=== PATIENT | male | born 1970 | race Caucasian/White ===

== ENCOUNTER 2019-10-18 18:37 | Emergency (ER) | payer OTHER, SELFPAY ==
[2019-10-18] VITALS (10 sets, daily range): BP systolic 136; BP diastolic 89; PULSE 65–74; RESP 18–24; TEMP 36.4; O2SAT 94–98
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
--- NOTE | 2019-10-18 19:06 | ED.BACK ---
HPI - Back Pain/Injury General Chief Complaint: Back Pain/Injury Stated Complaint: back pain Time Seen by Provider: 10/18/19 19:05 Source: patient and RN notes reviewed Mode of arrival: ambulatory Limitations: no limitations History of Present Illness HPI Narrative: A 49 y/o male presents to the ED with Related Data Home Medications Medication Instructions Recorded Confirmed Cymbalta 10/18/19 gabapentin 10/18/19 hydrocodone-acetaminophen [Whitt] tablet 10/18/19 Allergies Allergy/AdvReac Type Severity Reaction Status Date / Time No Known Allergies Allergy Verified 10/18/19 18:49 [facility] Past Medical History Medical History (Updated 10/18/19 @ 19:08 by Rico Rosado) Back pain with history of spinal surgery Surgical History Surgical History (Updated 10/18/19 @ 19:08 by Rico Rosado) History of spinal surgery Multiple. Social History Social History (Updated 10/18/19 @ 19:09 by Rico Rosado) Smoking packs per day: 1 Smoking cigarettes per day: 20.0 Smoking status: Current every day smoker Substance use: former Substance use type: marijuana and crack/cocaine Gender identity (if verbalized by the patient): Male Comments PCP: MYNOR Silva. Course Vital Signs Vital signs: Vital Signs Temperature 97.6 F 10/18/19 18:38 Pulse Rate 74 10/18/19 18:38 Respiratory Rate 24 H 10/18/19 18:38 Blood Pressure 136/89 10/18/19 18:38 Pulse Oximetry 98 10/18/19 18:38 Temperature 97.6 F 10/18/19 18:38 Pulse Rate 74 10/18/19 18:38 Respiratory Rate 24 H 10/18/19 18:38 Blood Pressure 136/89 10/18/19 18:38 Pulse Oximetry 98 10/18/19 18:38 Discharge Plan Discharge Prescriptions: No Action hydrocodone-acetaminophen [Whitt] 10-325 mg Tablet RF: 0 Cymbalta RF: 0 gabapentin RF: 0
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
[2019-10-18] MEDS: IBUPROFEN 600 MG TABLET PO (19:47)
[2019-10-18] MEDS: ACETAMINOPHEN 325 MG TABLET 650 MG PO (19:47)
[2019-10-18] MEDS: IPRATROPIUM BR 0.02% INH SOLN 0.5 MG/2.5 ML VIAL INHALATION (20:31)
[2019-10-18] MEDS: ALBUTEROL SULFATE NEB 2.5 MG/0.5 ML INH 5 MG INHALATION (20:31)
[2019-10-18] MEDS: HYDROMORPHONE HCL 1 MG/ML INJ IV PUSH (20:51)
== END 2019-10-18 21:22 | disposition home or self-care (01) ==
PROVIDERS: Emergency Provider Emergency Medicine
DX: M54.5 Low back pain (principal); G89.29 Other chronic pain; J45.901 Unspecified asthma with (acute) exacerbation; F17.210 Nicotine dependence, cigarettes, uncomplicated
CPT/HCPCS: 72100; 94640; 99284; A9270; J1170

== ENCOUNTER 2020-01-10 11:45 | Emergency (ER) | payer OTHER, SELFPAY ==
--- NOTE | ~2020-01-10 | XR_ITS ---
EXAMINATION: XR knee LT 3V DATE: 01/10/2020 12:56 INDICATION: Medial sided left knee pain post fall TECHNIQUE: Anteroposterior, oblique and crosstable lateral views of the left knee were obtained COMPARISON: None. FINDINGS: Alignment is normal. No fracture. Joint spaces are normal on nonweightbearing imaging. Small left kn ee joint effusion without layering lipohemarthrosis. Soft tissues are unremarkable. IMPRESSION: 1. Small left knee joint effusion. No osseous abnormality. Reviewed, dictated and finalized at location A.
[2020-01-10 11:52] VITALS: BP 150/86; PULSE 70; TEMP 36.2; O2SAT 98
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
== END 2020-01-10 13:51 | disposition home or self-care (01) ==
PROVIDERS: Emergency Provider Emergency Medicine
DX: M25.462 Effusion, left knee (principal); F17.210 Nicotine dependence, cigarettes, uncomplicated; W18.09XA Striking against other object with subsequent fall, initial encounter
CPT/HCPCS: 73562; 99283

== ENCOUNTER 2020-02-20 22:47 | Emergency (ER) | payer OTHER, SELFPAY ==
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
[2020-02-20 22:47] VITALS: BP 173/103; PULSE 89; RESP 38; TEMP 36.6; O2SAT 97
--- NOTE | 2020-02-20 23:13 | PC.NURSE ---
pt will not allow assessment or IV at this time. per EDP turn lights off and allow pt to calm down.
[2020-02-20 23:30] LABS: Basophils Percent Auto 0.3 % (0.2-1.2); Eosinophils Absolute Auto 0.1 K/mm3 (0-0.3); Eosinophils Percent Auto 0.8 % (0-4.4); Hematocrit 42.3 % (42.0-52.0); Hemoglobin 14.4 g/dL (14.0-18.0); Immature Granulocyte Absolute 0.35 K/mm3 (0.00-0.031); Immature Granulocyte Percent A 2.6 % (0-0.5); Lymphocytes Absolute Auto 2.24 K/mm3 (0.9-3.2); Lymphocytes Percent Auto 16.7 % (18.3-44.2); Mean Corpuscular Hemoglobin 31.2 pg (26-34); Mean Corpuscular Volume 91.6 fl (80-100); Mean Platelet Volume 9.1 fl (7.4-10.4); Monocytes Absolute Auto 0.6 K/mm3 (0.1-0.6); Monocytes Percent Auto 4.8 % (2.6-8.5); Neutrophils Absolute Auto 10.1 K/mm3 (1.3-6.7); Neutrophils Percent Auto 74.8 % (45.5-73.1); Platelet Count Result 279 k/mm3 (150-375); Red Blood Count 4.62 M/mm3 (4.6-6.20); Red Cell Distribution Width 14.6 % (11.5-14.5); White Blood Count 13.5 K/mm3 (4.5-10.0)
[2020-02-20] MEDS: ALBUTEROL SULFATE NEB 2.5 MG/0.5 ML INH 5 MG INHALATION (23:33)
[2020-02-20 23:34] VITALS: PULSE 81; RESP 20
[2020-02-20] MEDS: IPRATROPIUM BR 0.02% INH SOLN 0.5 MG/2.5 ML VIAL INHALATION (23:34)
[2020-02-20 23:42] LABS: Alanine Aminotransferase 22 U/L (4-50); Albumin Level 4.5 g/dL (3.5-5.1); Alkaline Phosphatase 105 U/L (38-126); Aspartate Amino Transferase 36 U/L (17-59); Bilirubin,Total 0.6 mg/dL (0.2-1.3); Blood Urea Nitrogen 19 mg/dL (9-20); Calcium 9.4 mg/dL (8.4-10.2); Carbon Dioxide 21 mmol/L (22-30); Chloride 107 mmol/L (98-107); Estimated Glomerular Filt Rate > 60; Glucose 103 mg/dL (75-110); Potassium 3.8 mmol/L (3.4-5.0); Sodium 138 mmol/L (137-145)
--- NOTE | 2020-02-21 | PC.NURSE ---
Pt not lethargic able to talk in full sentences. No distress at this time.
--- NOTE | 2020-02-21 | PC.NURSE ---
When asking pt orientation questions pt states I does know, I don't know I hurt everywhere I can't answer
[2020-02-21] MEDS: ONDANSETRON INJ 4 MG/2 ML VIAL IV PUSH (00:36)
[2020-02-21] MEDS: HYDROMORPHONE HCL 1 MG/ML INJ IV PUSH (00:37)
[2020-02-21 00:44] VITALS: BP 150/87; PULSE 91; RESP 24; O2SAT 94
--- NOTE | 2020-02-21 01:10 | PC.NURSE ---
Rn attempted to place pt's arm in sling. pt yells no you cant touch my arm. no one can touch it.
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
[2020-02-21 01:30] VITALS: BP 149/103; PULSE 81; RESP 18; O2SAT 98
[2020-02-21 02:27] VITALS: BP 149/103; PULSE 86; RESP 21; O2SAT 97
[2020-02-21] MEDS: HYDROMORPHONE HCL 1 MG/ML INJ 0.5 MG IV PUSH (03:02)
[2020-02-21 03:12] VITALS: BP 159/84; PULSE 70; RESP 17; TEMP 37.2; O2SAT 98
[2020-02-21 03:31] VITALS: BP 155/87; PULSE 88; RESP 17; O2SAT 99
== END 2020-02-21 03:32 | disposition short-term general hospital (02) ==
PROVIDERS: Emergency Provider General Practice
DX: S42.112A Displaced fracture of body of scapula, left shoulder, initial encounter for closed fracture (principal); S00.03XA Contusion of scalp, initial encounter; F17.210 Nicotine dependence, cigarettes, uncomplicated; V23.4XXA Motorcycle driver injured in collision with car, pick-up truck or van in traffic accident, initial encounter; M19.012 Primary osteoarthritis, left shoulder; M19.072 Primary osteoarthritis, left ankle and foot
CPT/HCPCS: 36415; 70450; 71045; 71260; 72125; 73030; 73060; 73610; 74177; 80053; 85025; 94640; 96374; 96375; 96376; 99285; A4565; J1170; J2405; L0140; Q9967

== ENCOUNTER 2021-10-30 19:52 | Emergency (ER) | payer OTHER, SELFPAY ==
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
[2021-10-30 20:06] VITALS: BP 138/85; PULSE 93; RESP 18; TEMP 36.2; O2SAT 97
[2021-10-30] MEDS: HYDROcodone/acetaminophen (*CRX) 5-325 MG TABLET 1 TAB (21:11)
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
[2021-10-30 21:37] VITALS: BP 138/75; PULSE 78; RESP 20; O2SAT 99
== END 2021-10-30 21:38 | disposition home or self-care (01) ==
PROVIDERS: Emergency Provider Family Medicine; PCP Physician Assistant
DX: S01.01XA Laceration without foreign body of scalp, initial encounter (principal); F41.9 Anxiety disorder, unspecified; F32.A Depression, unspecified; F17.210 Nicotine dependence, cigarettes, uncomplicated; V27.4XXA Motorcycle driver injured in collision with fixed or stationary object in traffic accident, initial encounter
CPT/HCPCS: 12002; 70450; 99284; A9270